=== PATIENT | male | born 1970 | race Two or more races ===

== ENCOUNTER 2024-04-08 00:49 | Emergency (ER) | payer MEDICAID, SELFPAY ==
[2024-04-08 01:14] VITALS: BP 163/91; PULSE 95; RESP 18; TEMP 36.9; O2SAT 96
--- NOTE | 2024-04-08 01:41 | PD.EDRME ---
Rapid Medical Screening Exam [facility] Arrival date/time: 04/08/24 00:49 53M with no significant PMH presents to ED with 3 days of epigastric pain and N/V. Patient denies diarrhea, though possible dysuria. Patient also denies ab surgeries and drug/alcohol use. Chief Complaint: Abdominal Pain Vital signs: Vital Signs Temperature 98.5 F 04/08/24 01:14 Pulse Rate 95 04/08/24 01:14 Respiratory Rate 18 04/08/24 01:14 Blood Pressure 163/91 H 04/08/24 01:14 Pulse Oximetry (%) 96 04/08/24 01:14 Oxygen Delivery Method Room Air 04/08/24 01:14
--- NOTE | 2024-04-08 02:27 | PD.EDABDPN ---
ED Abdominal Pain RME/HPI General Chief Complaint: Abdominal Pain Stated complaint: ABD PAIN Time seen by provider: 04/08/24 02:23 Arrival date/time: 04/08/24 00:49 Source: patient Mode of arrival: ambulatory Limitations: no limitations RME / HPI RME / HPI narrative: 04/08/24 00:49 53M with no significant PMH presents to ED with 3 days of epigastric pain and N/V. Patient denies diarrhea, though possible dysuria. Patient also denies ab surgeries and drug/alcohol use. Dr. Thomas?s Main ED Evaluation: 53-year-old male with no significant past medical history who presents to the emergency department with complaints of epigastric pain and nausea lasting for the past three days. He describes the pain as persistent and localized to the epigastric region without radiation. He reports nausea and vomiting initially but denies any ongoing nausea, vomiting, or diarrhea at the time of evaluation. He does mention taking an unknown type of medication given to him by a friend for pain relief but is unable to provide further details regarding the name or dosage. He also denies associated symptoms such as fever, chills, or recent changes in bowel habits. Although he denies consistent urinary symptoms, he indicates there may have been some mild dysuria. Related Data Previous Rx's ?Medication ?Instructions ?Recorded aluminum-mag hydroxide-simethicone 15 ml PO QID PRN Gastritis #3,000 04/08/24 200 mg-200 mg-20 mg/5 mL oral susp mL (Maalox Advanced) famotidine 20 mg tablet (Pepcid) 20 mg PO QDAY Gastritis 14 days 04/08/24 #14 tabs ondansetron 4 mg disintegrating 4 mg PO Q6H PRN nausea and 04/08/24 tablet vomiting #14 tabs pantoprazole 40 mg tablet,delayed 40 mg PO QDAY Gastritis 14 days 04/08/24 release (Protonix) #14 tabs sucralfate 1 gram tablet (Carafate) 1 g PO TID Gastritis 14 days #42 04/08/24 tabs Allergies Allergy/AdvReac Type Severity Reaction Status Date / Time No Known Allergies Allergy Verified 04/08/24 01:56 Review of Systems Review of Systems Systems Reviewed: All systems reviewed, normal except as documented Past Medical History Social History SMOKING STATUS: Current every day smoker ED Exam Narrative Physical exam: GENERAL APPEARANCE: alert and oriented x 4, well-developed, well-nourished, no acute distress VITALS: All vitals were reviewed and the pulse ox is 96% on room air, which is normal according to my interpretation. HEENT: Normocephalic, atraumatic; pupils equal, round, reactive to light; EOMI; mucous membranes pink, moist; oropharynx clear NECK: Supple LUNGS: CTABL; no wheezes, no rales, no rhonchi HEART: Regular rate, regular rhythm; normal S1, S2; no murmurs ABDOMEN: non distended; normal BS; soft, no tenderness, no guarding, no rebound; no masses, no organomegaly, no hernia BACK: no CVA tenderness EXTREMITIES: atraumatic; no edema NEUROLOGIC: awake; alert and oriented x4; cranial nerves II-XII grossly intact; no focal sensory or motor deficits PSYCHIATRIC: appropriate mood and affect SKIN: warm, dry, normal color; no rashes General Limitations: Present no limitations Course Quality Measures none Orders Category Date Time Status IV [Insert IV] NOW Care 04/08/24 02:43 Active Alcohol, Blood Medical Stat Lab 04/08/24 02:25 Completed CBC Stat Lab 04/08/24 02:25 Completed CMP [Comprehensive Metabolic Panel] Stat Lab 04/08/24 02:25 Completed Lipase Stat Lab 04/08/24 02:25 Completed Famotidine Inj [Pepcid Inj] Med 04/08/24 02:43 Discontinued 20 mg IVP X1 ONE Morphine Inj Med 04/08/24 01:41 Discontinued 5 mg IM X1 ONE Ondansetron Odt [Zofran Odt] Med 04/08/24 01:41 Discontinued 4 mg PO X1 ONE Pantoprazole Inj [Protonix Inj] Med 04/08/24 02:43 Discontinued 40 mg IV X1 ONE Sodium Chloride 0.9% 1000 ml [Ns] 1,000 ml Med 04/08/24 02:44 Discontinued IV 999 mls/hr Sucralfate [Carafate] Med 04/08/24 02:43 Discontinued 1 gm PO X1 ONE mg Hyd/Al Hyd/Eve Susp [Maalox Susp] Med 04/08/24 02:43 Discontinued 30 ml PO X1 ONE Vital Signs Vital signs: Vital Signs Temperature 98.5 F 04/08/24 01:14 Pulse Rate 95 04/08/24 01:14 Respiratory Rate 18 04/08/24 01:14 Blood Pressure 163/91 H 04/08/24 01:14 Pulse Oximetry (%) 96 04/08/24 01:14 Oxygen Delivery Method Room Air 04/08/24 01:14 Abdominal Pain MDM MDM Narrative MDM Narrative:: Scribe Attestation: IDouglas am scribing for and in the presence of Dr. Thomas. Provider Notation: Although this document has been carefully reviewed, there may still be some phonetic and other typographical errors. These errors are purely grammatical due to imperfections in the software program and should not be construed in any way to compromise the substance of the patient's medical care during this visit. Patient data External records reviewed:: [facility] previous records Clinical information provided by:: patient Social determinants that could affect healthcare access:: housing Patient has the following chronic illnesses:: n/a How is presenting disease/condition affected by chronic disease/condition?: no chronic disease Evaluation data The following diagnostics were reviewed and interpreted by me:: lab results Lab and/or radiology exams considered but not ordered:: n/a Interpretation Summary: Labs reviewed Medications / Prescriptions Medications or Prescriptions considered but not ordered:: n/a Medication administrations:: Medication Administration History Discontinued Medications Al Hydrox/Mg Hydrox/Simethicone (Mg Hyd/Al Hyd/Eve (Maalox Reg) Susp 30 Ml Udc) 30 ml PO X1 ONE Stop: 04/08/24 02:44 Last Admin: 04/08/24 02:50 Dose: 30 ml Documented By: SUKUMAR Famotidine (Famotidine Inj 10 Mg/Ml Vial 2 Ml) 20 mg IVP X1 ONE Stop: 04/08/24 02:44 Last Admin: 04/08/24 02:50 Dose: 20 mg Documented By: SUKUMAR Sodium Chloride (Ns) 1,000 mls @ 999 mls/hr IV .Q1H1M ONE Stop: 04/08/24 03:44 Last Admin: 04/08/24 02:50 Dose: 999 mls/hr Documented By: SUKUMAR Morphine Sulfate (Morphine Sulf Inj 10 Mg/Ml Vial) 5 mg IM X1 ONE Stop: 04/08/24 01:42 Last Admin: 04/08/24 02:38 Dose: 5 mg Documented By: SUKUMAR Ondansetron HCl (Ondansetron Odt 4 Mg Tabrap) 4 mg PO X1 ONE; Protocol Stop: 04/08/24 01:42 Last Admin: 04/08/24 02:39 Dose: 4 mg Documented By: SUKUMAR Pantoprazole Sodium (Pantoprazole Inj 40 Mg Vial) 40 mg IV X1 ONE Stop: 04/08/24 02:44 Last Admin: 04/08/24 02:50 Dose: 40 mg Documented By: SUKUMAR Sucralfate (Sucralfate 1 Gm Tablet) 1 gm PO X1 ONE Stop: 04/08/24 02:44 as above Consultations Consultation(s) initiated? (list below): No Diagnosis Differential diagnosis abdominal pain: other (gastritis, peptic ulcer disease, pancreatitis, and gallbladder pathology) Most likely diagnosis given after review of the tests above:: see clinical impression below Admission Indicated Admission indicated?: not indicated Admission Request Was there a request for admission?: No Disposition Plan Disposition Plan: Discharge Discharge Attestation Discharge Attestation: The patient and all family members were given an opportunity to ask questions and understood the discharge instructions. Discharge instructions specifically effects, indications for sooner follow up or return to the emergency department, and the expected course of current diagnosis. Patient condition: Stable Discharge Plan Plan Patient Disposition: HOME (Self Care) Disposition Comment: Stable for discharge Patient condition on transfer: Stable Prescriptions/Referrals Prescriptions/Med Rec: New sucralfate [Carafate] 1 gram tablet 1 g PO TID 14 Days Qty: 42 0RF famotidine [Pepcid] 20 mg tablet 20 mg PO QDAY 14 Days Qty: 14 0RF alum-mag hydroxide-simeth [Maalox Advanced] 200-200-20 mg/5 mL suspension 15 ml PO QID PRN (Reason: Gastritis) Qty: 3000 0RF Rx Instructions: administer between meals and at bedtime pantoprazole [Protonix] 40 mg tablet,delayed release (DR/EC) 40 mg PO QDAY 14 Days Qty: 14 0RF ondansetron 4 mg tablet,disintegrating 4 mg PO Q6H PRN (Reason: nausea and vomiting) Qty: 14 0RF Referrals: Bhupendra Murdock MD [Physician] - In 1 week Problem List Clinical Impression: Gastritis Patient/Caregiver Discharge Instructions Discharge Activity: activity as tolerated Diet Instructions: No spicy foods. Education Materials: Treating Gastritis, Understanding Gastritis, Anatomy of the Digestive System, ED Gastritis (Adult), ED PEPTIC ULCER vs GASTRITIS Additional Instructions: Please return to the emergency department for any worsening or any further medical problems. Otherwise you should follow-up with your primary care doctor in the next several days. You should also follow-up with Dr. Murdock, who is our marble machine operator. The marble machine operator is a specialist with the stomach. Please call his office to make an appointment so he can be seen within the next several days or so. You should avoid drinking alcohol until you are feeling better Print Language: Turkmen Stand Alone Forms: Deisy Award Info., Patient Portal Info Letter
[2024-04-08] MEDS: MORPHINE SULF INJ 10 MG/ML VIAL 5 MG IM (02:38)
[2024-04-08] MEDS: ONDANSETRON ODT 4 MG TABRAP PO (02:39)
[2024-04-08 02:44] LABS: Basophils % (Auto) 1 % (0-2.5); Eosinophils % (Auto) 0 % (0-10); Hematocrit 39.6 % (41.0-53.0); Hemoglobin 14.4 g/dL (13.5-16.0); Immature Granulocytes % (Auto) 0 % (0-0); Immature Granulocytes Auto 0.01 Thou/mm3 (0.00-0.00); Lymphocytes % (Auto) 23 % (10-50); Mean Corpuscular HGB Conc 36.4 g/dl (31.0-37.0); Mean Corpuscular Hemoglobin 35.2 pg (25.0-35.0); Mean Corpuscular Volume 97 fL (80-100); Monocytes # (Auto) 0.5 Thou/mm3 (0.0-0.8); Monocytes % (Auto) 10 % (0-12); Neutrophils # (Auto) 2.9 Thou/mm3 (1.8-7.7); Neutrophils % (Auto) 66 % (37-80); Nucleated Red Blood Cell % 0 /100 WBC (0); Platelet Count 394 Thou/mm3 (140-440); Red Blood Count 4.09 Miln/mm3 (4.50-5.90); White Blood Count 4.5 Thou/mm3 (3.8-10.6)
[2024-04-08] MEDS: MG HYD/AL HYD/SIME (Maalox Reg) SUSP 30 ML UDC PO (02:50)
[2024-04-08] MEDS: FAMOTIDINE INJ 10 MG/ML VIAL 2 ML 20 MG IVP (02:50)
[2024-04-08] MEDS: PANTOPRAZOLE INJ 40 MG VIAL IV (02:50)
[2024-04-08] MEDS: SODIUM CHLORIDE 0.9% 1000 ML 1,000 ML 999 ML IV (02:50)
[2024-04-08 02:57] LABS: Alanine Aminotransferase 20 U/L (10-49); Albumin, Serum 4.4 gm/dL (3.5-5.0); Albumin/Globulin Ratio 1.8 (1.2-2.2); Alcohol, Blood Medical < 10.0 mg/dL (0-10.0); Alkaline Phosphatase 97 U/L (46-116); Anion Gap 7 (7-16); Aspartate Amino Transferase 28 U/L (0-34); BUN/Creatinine Ratio 19 Ratio (12-20); Bilirubin,Total 0.5 mg/dL (0.3-1.2); Blood Urea Nitrogen 13 mg/dL (9-23); Calcium 9.2 mg/dL (8.3-10.6); Calcium (Corrected) 9.2 mg/dL (8.5-10.1); Carbon Dioxide 32.1 mMol/L (20.0-31.0); Chloride 98 mMol/L (98-107); Creatinine (Component) 0.7 mg/dL (0.6-1.3); Globulin 2.4 gm/dL (2.3-3.5); Glucose 128 mg/dL (74-106); Lipase 28 U/L (12-53); Osmolality,Calculated 275 (275-295); Potassium 3.6 mMol/L (3.4-5.1); Sodium 137 mMol/L (136-145); Total Protein 6.8 gm/dL (5.7-8.2); eGFR > 60 See Note
== END 2024-04-08 04:13 | disposition home or self-care (01) ==
PROVIDERS: Physician Assistant; Emergency Provider Emergency Medicine
DX: K29.70 Gastritis, unspecified, without bleeding (principal)
CPT/HCPCS: 36415; 80053; 80307; 80320; 81001; 83690; 85025; 96372; 96374; 96375; 99284; J2270; J2470; J3490; J7030; Q0162; A9270; G0480

== ENCOUNTER 2024-07-06 17:32 | Emergency (ER) | payer SELFPAY ==
[2024-07-06 17:58] VITALS: BP 134/86; PULSE 102; RESP 18; TEMP 36.9; O2SAT 95
--- NOTE | 2024-07-06 18:00 | XR_ITS ---
Examination: CT abdomen and pelvis without contrast. Coronal 3-D reconstructions. Sagittal 2-D reconstructions. Date and time of exam:July 06, 2024 1818 hours INDICATIONS: Abdominal pain and epigastric pain nausea vomiting beginning 3 days ago CTDI: vol (mGy): 6.42 DLP: (mGycm): 335 Technique: Axial images of the abdomen have been obtained, 3 mm slice thickness Intravenous contrast material has not been administered. Low dose protocols were performed. One or more of the following dose reduction techniques were used; automated exposure control, adjustment of the mA and/or KV according to patient size, use of iterative reconstruction technique. Findings: The stomach is fluid-filled with thickening of the mucosa in the gastric antrum, coronal image 40 No focal liver or splenic lesions No pancreatic mass No renal or ureteral calculi, no hydronephrosis Aorta normal size No bowel obstruction Urinary bladder intact No prostatomegaly The osseous structures are intact IMPRESSION: This study is significantly limited without intravenous contrast Fluid distended stomach with mucosal thickening of the gastric antrum, differential would include antral gastritis Repeating the study with intravenous contrast would better assess mucosa detail in the stomach and duodenum
--- NOTE | 2024-07-06 18:01 | PD.EDRME ---
Rapid Medical Screening Exam RME Arrival date/time: 07/06/24 17:32 This is a case of a 53-year-old male who came in in the emergency room due to abdominal pain generalized cramping in character with nausea vomiting 4 times today no diarrhea no constipation no blood in stool Chief Complaint: Flu Like Symptoms Time Seen by Provider: 07/06/24 17:46 Vital signs: Vital Signs Temperature 98.4 F 07/06/24 17:58 Pulse Rate 102 H 07/06/24 17:58 Respiratory Rate 18 07/06/24 17:58 Blood Pressure 134/86 H 07/06/24 17:58 Pulse Oximetry (%) 95 07/06/24 17:58 Oxygen Delivery Method Room Air 07/06/24 17:58
[2024-07-06 19:17] LABS: Basophils % (Auto) 0 % (0-2.5); Eosinophils % (Auto) 0 % (0-10); Hematocrit 44.9 % (41.0-53.0); Hemoglobin 16.1 g/dL (13.5-16.0); Immature Granulocytes % (Auto) 1 % (0-0); Lymphocytes # (Auto) 0.9 Thou/mm3 (1.0-4.8); Lymphocytes % (Auto) 6 % (10-50); Mean Corpuscular HGB Conc 35.9 g/dl (31.0-37.0); Mean Corpuscular Volume 95 fL (80-100); Monocytes # (Auto) 0.8 Thou/mm3 (0.0-0.8); Monocytes % (Auto) 5 % (0-12); Neutrophils # (Auto) 13.1 Thou/mm3 (1.8-7.7); Neutrophils % (Auto) 88 % (37-80); Nucleated Red Blood Cell % 0 /100 WBC (0); Platelet Count 412 Thou/mm3 (140-440); RDW Standard Deviation 43.8 fL (35.1-43.9); Red Blood Count 4.74 Miln/mm3 (4.50-5.90); White Blood Count 14.9 Thou/mm3 (3.8-10.6)
[2024-07-06 19:36] LABS: Alanine Aminotransferase 24 U/L (10-49); Albumin, Serum 5.2 gm/dL (3.5-5.0); Albumin/Globulin Ratio 1.7 (1.2-2.2); Alkaline Phosphatase 116 U/L (46-116); Anion Gap 11 (7-16); Aspartate Amino Transferase 22 U/L (0-34); BUN/Creatinine Ratio 28 Ratio (12-20); Blood Urea Nitrogen 28 mg/dL (9-23); Calcium 10.3 mg/dL (8.3-10.6); Calcium (Corrected) 10.3 mg/dL (8.5-10.1); Chloride 85 mMol/L (98-107); Glucose 154 mg/dL (74-106); Lipase 39 U/L (12-53); Osmolality,Calculated 271 (275-295); Potassium 3.1 mMol/L (3.4-5.1); Sodium 131 mMol/L (136-145); Total Protein 8.2 gm/dL (5.7-8.2); eGFR > 60 See Note
[2024-07-07] LABS: Collection Type, Urine Clean Catch; RBC,Urine 0 /hpf (0-3); WBC,Urine 0 /hpf (0-5)
[2024-07-07 00:39] LABS: Bilirubin,Urine Negative (Negative); Blood,Urine Negative (Negative); Clarity,Urine Turbid (Clear/Hazy); Color,Urine Yellow (Lt Yel-Yel); Glucose, Urine Trace (Negative); Hyaline Casts,Urine < 1 /hpf (0-1); Ketones,Urine Negative (Negative); Leukocyte Esterase,Urine Negative (Negative); Nitrite,Urine Negative (Negative); PH,Urine 5.5 (5.0-7.0); Protein,Urine 1+ (Neg - Trace); Specific Gravity,Urine 1.029 (1.001-1.035); Squamous Epithelial Cell,Urine 1 /hpf (0-5); Urobilinogen,Urine Negative mg/dL (0.0-1.0)
--- NOTE | 2024-07-07 00:47 | EDNOTE_ITS ---
ED Abdominal Pain RME/HPI General Chief Complaint: Flu Like Symptoms Stated complaint: Nausea and vomiting Time seen by provider: 07/06/24 17:46 Arrival date/time: 07/06/24 17:32 RME / HPI RME / HPI narrative: 07/06/24 17:32 This is a case of a 53-year-old male who came in in the emergency room due to abdominal pain generalized cramping in character with nausea vomiting 4 times today no diarrhea no constipation no blood in stool -------- Dr. Washington?s Main ED Evaluation: 53yo male presents to the ED for a chief complaint of epigastric pain x 3 days. No radiation or migration. Patient states his pain worsened after he ate a cup of noodles, so he came in for evaluation. Patient reports associated N/V, reporting he took OTC medications (does not remember the names of them) without any improvement of symptoms, so he came in for evaluation. Patient denies any fever, chills, diarrhea, constipation or any other associated symptoms. NKA. Related Data Previous Rx's ?Medication ?Instructions ?Recorded aluminum-mag hydroxide-simethicone 15 ml PO QID PRN Ga stritis #3,000 04/08/24 200 mg-200 mg-20 mg/5 mL oral susp mL (Maalox Advanced) ondansetron 4 mg disintegrating 4 mg PO Q6H PRN nausea and 04/08/24 tablet vomiting #14 tabs pantoprazole 40 mg tablet,delayed 40 mg PO QDAY #20 ta bs 07/07/24 release (Protonix) Allergies Allergy/AdvReac Type Severity Reaction Status Date / Time No Known Allergies Allergy Verified 07/06/24 17:37 Review of Systems Review of Systems Systems Reviewed: All systems reviewed, normal except as documented Past Medical History Past Medical History CARDIAC: Negative Congestive Heart Failure RESPIRATORY: Negative Chronic Obstructive Pulmonary Disease (COPD) GENITOURINARY: Negative Renal Disease ENDOCRINE: Negative Diabetes Mellitus Type 1 or Diabetes Mellitus Type 2 Social History SMOKING STATUS: Light (< 1 pack/day) ED Exam Narrative Physical exam: GENERAL APPEARANCE: AxOx4, generally well-appearing, no acute distress. HEENT: NC, AT. MMM. EOMI, clear conjunctiva, oropharynx clear. NECK: Supple without lymphadenopathy. No stiffness or restricted ROM. HEART: Normal rate and regular rhythm, normal S1/S1, no m/r/g LUNGS: CTAB, moving air well. No crackles or wheezes are heard. ABDOMEN: Soft, mild epigastric pain, nontender, nondistended with good bowel sounds heard. BACK: No midline C/T/L spine pain or deformity, No CVAT, no obvious deformity. EXTREMITIES: Without cyanosis, clubbing or edema. MUSCULOSKELETAL: FROM of all major joints, no chest tenderness NEUROLOGICAL: Grossly nonfocal. Alert and oriented, moving all 4 extremities. CN not formally tested but appear grossly intact. Observed to ambulate with normal gait. Skin: Warm and dry without any rash. Course Quality Measures none Orders Category Date Time Status CT abdomen pelvis wo con Stat Exams 07/06/24 18:00 Completed CBC Stat Lab 07/06/24 18:42 Completed Comprehensive Metabolic Panel Stat Lab 07/06/24 18:42 Completed Lipase Stat Lab 07/06/24 18:42 Completed Urinalysis Stat Lab 07/06/24 23:55 Completed Vital Signs Vital signs: Vital Signs Temperature 98.4 F 07/06/24 17:58 Pulse Rate 102 H 07/06/24 17:58 Respiratory Rate 18 07/06/24 17:58 Blood Pressure 134/86 H 07/06/24 17:58 Pulse Oximetry (%) 95 07/06/24 17:58 Oxygen Delivery Method Room Air 07/06/24 17:58 Abdominal Pain MDM MDM Narrative MDM Narrative:: Scribe Attestation: 07/07/24 Karly Schaefer am scribing for and in the presence of Dr. Washington. Patient data External records reviewed:: [facility] previous records (Per chart review, patient was seen here on 04/08/24 for gastritis.) Clinical information provided by:: patient Social determinants that could affect healthcare access:: none Patient has the following chronic illnesses:: none How is presenting disease/condition affected by chronic disease/condition?: no chronic disease Evaluation data The following diagnostics were reviewed and interpreted by me:: lab results and radiology exam(s) Lab and/or radiology exams considered but not ordered:: none Interpretation Summary: WBC count is 14.9, Glucose is 165, Lipase is normal, UA is unremarkable. ------ [facility] Report Signed Patient: MARGE ANGEL [facility]. Record#: [id number] Birthdate: 1970 Age/Sex: 53 / M Location: [facility] Attending Dr: Ordering Physician: Kenia Burks Date of Service: 07/06/24 Procedure(s): CT abdomen pelvis wo con Accession Number(s): [id number] cc: Arnulfo Murray MD; NO PRIMARY/FAMILY,PHYSICIAN; Kenia Burks~ Examination: CT abdomen and pelvis without contrast. Coronal 3-D reconstructions. Sagittal 2-D reconstructions. Date and time of exam:July 06, 2024 1818 hours INDICATIONS: Abdominal pain and epigastric pain nausea vomiting beginning 3 days ago CTDI: vol (mGy): 6.42 DLP: (mGycm): 335 Technique: Axial images of the abdomen have been obtained, 3 mm slice thickness Intravenous contrast material has not been administered. Low dose protocols were performed. One or more of the following dose reduction techniques were used; automated exposure control, adjustment of the mA and/or KV according to patient size, use of iterative reconstruction technique. Findings: The stomach is fluid-filled with thickening of the mucosa in the gastric antrum, coronal image 40 No focal liver or splenic lesions No pancreatic mass No renal or ureteral calculi, no hydronephrosis Aorta normal size No bowel obstruction Urinary bladder intact No prostatomegaly The osseous structures are intact IMPRESSION: This study is significantly limited without intravenous contrast Fluid distended stomach with mucosal thickening of the gastric antrum, differential would include antral gastritis Repeating the study with intravenous contrast would better assess mucosa detail in the stomach and duodenum Dictated By: Arnulfo Murray MD Signed By: <Electronically signed by Arnulfo Murray MD in OV> 07/06/24 3199 Medications / Prescriptions Medications or Prescriptions considered but not ordered:: none Medication administrations:: none Consultations Consultation(s) initiated? (list below): No Diagnosis Differential diagnosis abdominal pain: pancreatitis and other (gastritis, GERD, PUD, cholelithiasis, cholecystitis) Most likely diagnosis given after review of the tests above:: see clinical impression below Admission Indicated Admission indicated?: not indicated Admission Request Was there a request for admission?: No Disposition Plan Disposition Plan: Discharge Discharge Attestation Discharge Attestation: The patient and all family members were given an opportunity to ask questions and understood the discharge instructions. Discharge instructions specifically effects, indications for sooner follow up or return to the emergency department, and the expected course of current diagnosis. Patient condition: Stable Discharge Plan Plan Patient Disposition: HOME (Self Care) Prescriptions/Referrals Prescriptions/Med Rec: New pantoprazole [Protonix] 40 mg tablet,delayed release (DR/EC) 40 mg PO QDAY Qty: 20 0RF No Action alum-mag hydroxide-simeth [Maalox Advanced] 200-200-20 mg/5 mL suspension 15 ml PO QID PRN (Reason: Gastritis) Qty: 3000 0RF Rx Instructions: administer between meals and at bedtime ondansetron 4 mg tablet,disintegrating 4 mg PO Q6H PRN (Reason: nausea and vomiting) Qty: 14 0RF Referrals: No Primary/Family,Physician [Primary Care Provider] - In 1 week Problem List Clinical Impression: Gastritis Patient/Caregiver Discharge Instructions Education Materials: ED PEPTIC ULCER vs GASTRITIS Additional Instructions: Con los medicamentos recetados, tome famotidina (Pepcid) de venta deloris, 20 mg, dos veces al d?a odilon los primeros 3 d?as, y Maalox, 1 cucharada, 3 veces al d?a odilon los primeros 3 d?as. Acuda a michela baljeet de seguimiento con benoit m?dico de cabecera en 2 semanas para michela nueva revisi?n. Puede regresar a urgencias antes si los s?ntomas empeoran o si nota alg?n problema nuevo que le preocupe. Print Language: Hebrew Stand Alone Forms: Deisy Award Info., Patient Portal Info Letter
== END 2024-07-07 00:57 | disposition home or self-care (01) ==
PROVIDERS: Nurse Practitioner Family; Emergency Provider Emergency Medicine
DX: K29.70 Gastritis, unspecified, without bleeding (principal)
CPT/HCPCS: 36415; 74176; 80053; 81001; 83690; 85025; 99284